=== PATIENT | female | born 2000 | race Caucasian/White ===

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

== ENCOUNTER 2021-05-18 11:56 | Outpatient (CLI) | payer OTHER, SELFPAY ==
[2021-05-18 12:44] LABS: Alanine Aminotransferase 18 U/L (4-35); Aspartate Amino Transferase 32 U/L (14-36)
== END 2021-05-18 11:57 | disposition home or self-care (01) ==
PROVIDERS: PCP Physician Assistant; Visit Provider Podiatrist Foot & Ankle Surgery
DX: B35.1 Tinea unguium (principal)
CPT/HCPCS: 36415; 84450; 84460

== ENCOUNTER 2021-08-23 10:29 | Outpatient (CLI) | payer OTHER, SELFPAY ==
[2021-08-23 10:52] LABS: Alanine Aminotransferase 50 U/L (6-35); Aspartate Amino Transferase 63 U/L (14-36)
== END 2021-08-23 10:30 | disposition home or self-care (01) ==
PROVIDERS: PCP Physician Assistant; Visit Provider Podiatrist Foot & Ankle Surgery
DX: B35.1 Tinea unguium (principal)
CPT/HCPCS: 36415; 84450; 84460

== ENCOUNTER 2022-08-26 10:16 | Outpatient (CLI) | payer OTHER, SELFPAY ==
[2022-08-26 11:11] LABS: Alanine Aminotransferase 38 U/L (6-35); Aspartate Amino Transferase 35 U/L (14-36)
== END 2022-08-26 10:17 | disposition home or self-care (01) ==
LOC: ANHLAB 10:18
PROVIDERS: PCP Physician Assistant; Visit Provider Podiatrist Foot & Ankle Surgery
DX: B35.1 Tinea unguium (principal)
CPT/HCPCS: 36415; 84450; 84460

== ENCOUNTER 2022-12-09 14:25 | Outpatient (CLI) | payer OTHER, SELFPAY ==
[2022-12-09 15:14] LABS: Alanine Aminotransferase 53 U/L (6-35); Aspartate Amino Transferase 46 U/L (14-36)
== END 2022-12-09 14:26 | disposition home or self-care (01) ==
LOC: ANHLAB 14:28
PROVIDERS: PCP Physician Assistant; Visit Provider Podiatrist Foot & Ankle Surgery
DX: B35.1 Tinea unguium (principal)
CPT/HCPCS: 36415; 84450; 84460

== ENCOUNTER 2023-05-05 10:17 | Outpatient (CLI) | payer OTHER, SELFPAY ==
--- NOTE | ~2023-05-05 | XR_ITS ---
XR toe 1st RT min 2V DATE: 05/05/2023 10:42 INDICATION: Erythema, pain and swelling at the nailbed. Toenail removed. TECHNIQUE: 4 views COMPARISON: None FINDINGS: There is soft tissue swelling of the great toe. No fracture, dislocation, periosteal reacti on or bone destruction. Mild hallux valgus and bunion deformity. IMPRESSION: Soft tissue swelling; no acute bony finding Reviewed, dictated and finalized at location B. [employer]
== END 2023-05-05 10:18 | disposition home or self-care (01) ==
LOC: ANHIMG 10:18
PROVIDERS: PCP Family Medicine; Visit Provider Physician Assistant
DX: M79.674 Pain in right toe(s) (principal); M79.89 Other specified soft tissue disorders
CPT/HCPCS: 73660